=== PATIENT | female | born 1995 | race Caucasian/White ===

== ENCOUNTER 2023-04-11 10:22 | Outpatient (CLI) | payer OTHER, SELFPAY ==
[2023-04-11 10:32] LABS: MANUAL DIFFERENTIAL MANUAL DIFFERENTIAL (MANUAL DIFF)
--- NOTE | 2023-04-11 10:37 | XR_ITS ---
FINAL REPORT CLINICAL HISTORY: scattered wheezing FINDINGS: Two views of the chest were obtained. The heart size and pulmonary vascularity are within normal limits. The mediastinum is normal. No acute pulmonary abnormality is identified. There is no pneumothorax. The bony thorax is intact. IMPRESSION: No active cardiopulmonary disease. Reviewed, Interpreted and Dictated by Neal Jaimes III, MD Transcribed by Jaleesa Carlson Authenticated and . [facility]
[2023-04-11 10:49] LABS: Basophils % 0.1 % (0.1-2.0); Eosinophils # 0.1 K/mm3 (0.0-0.4); Eosinophils % 1.2 % (0.1-12.0); Hematocrit 40.6 % (37.0-47.0); Lymphocytes # 2.5 K/mm3 (0.7-4.5); Lymphocytes % 23.6 % (10-50); Mean Corpuscular HGB Conc 34.6 g/dL (31.8-35.4); Mean Corpuscular Hemoglobin 31.2 pg (27.0-31.2); Mean Corpuscular Volume 90.2 fl (81-99); Mean Platelet Volume 7.7 fl (7.4-10.4); Monocytes # 0.5 K/mm3 (0.1-1.0); Monocytes % 4.5 % (1.7-9.3); Neutrophils # 7.4 K/mm3 (1.8-7.8); Neutrophils % 70.5 % (37.0-80.0); Platelet Count 408 K/mm3 (142-424); Red Cell Distribution Width 12.5 % (11.5-17.5); White Blood Count 10.5 K/mm3 (4.8-10.8)
[2023-04-11 11:29] LABS: Anion Gap 15.7 mEq/L (5-15); Blood Urea Nitrogen 8 mg/dl (7-17); Calcium 9.7 mg/dl (8.4-10.2); Carbon Dioxide 25 mmol/L (22.0-30.0); Chloride 104 mmol/L (98-107); Estimated Glomerular Filt Rate 101 ml/min (>60); GFR (African American) 122 ML/MIN (>60); Glucose 103 mg/dl (74-100); Potassium 3.7 mmoL/L (3.5-5.1); Sodium 141 mmol/L (136-145)
[2023-04-11 13:23] LABS: Lymphocytes % 30 % (10-50); Monocytes % 6 % (2-9); Neutrophils % 64 % (42-76); Total Cells Counted 100
[2023-04-11 13:24] LABS: Platelet Estimate Slight Increase; RBC Morphology Normal
== END 2023-04-11 23:59 ==
LOC: LAB 10:24
PROVIDERS: PCP Family Medicine; Visit Provider Nurse Practitioner
DX: J32.0 Chronic maxillary sinusitis (principal); R05.9 Cough, unspecified; R06.2 Wheezing
CPT/HCPCS: 36415; 71046; 80048; 85007; 85014; 85018; 85048; 85049